=== PATIENT | male | born 1975 | race Caucasian/White ===

== ENCOUNTER 2017-04-01 11:50 | Emergency (ER) | payer OTHER ==
[2017-04-01] MEDS ORDERED: Sodium Chloride 0.9% 1,000 ML IV ONE (12:22)
--- NOTE | 2017-04-01 12:28 | EDM.PDOC ---
ED HPI GENERAL MEDICAL PROBLEM - General Chief Complaint: Neurological Problem Stated Complaint: WEAKNESS IN ARMS Time Seen by Provider: 04/01/17 12:27 Source of Information: Reports: Patient History Limitations: Reports: No Limitations - History of Present Illness INITIAL COMMENTS - FREE TEXT/NARRATIVE: History of present illness: [41-year-old male comes in complaining of sensation that his arms are very heavy as if he is lifting weights area patient indicates that this sensation has gone last couple days but he is now concerned because his friend says that his speech is altered and seems to be less clear. Patient has a left-sided facial droop that is long-standing he is unable to indicate how many years it's been like that.] Review of systems: As per history of present illness and below otherwise all systems reviewed and negative. Past medical history: As per history of present illness and as reviewed below otherwise noncontributory. Surgical history: As per history of present illness and as reviewed below otherwise noncontributory. Social history: No reported history of drug or alcohol abuse. Family history: As per history of present illness and as reviewed below otherwise noncontributory. Physical exam: HEENT: Patient has a left-sided facial droop and otherwise its stroke scale of zero, normocephalic, pupils reactive, negative for conjunctival pallor or scleral icterus, mucous membranes moist, throat clear, neck supple, nontender, trachea midline. Lungs: Clear to auscultation, breath sounds equal bilaterally, chest nontender. Heart: S1S2, regular, negative for clicks, rubs, or JVD. Abdomen: Soft, nondistended, nontender. Negative for masses or hepatosplenomegaly. Negative for costovertebral tenderness. Pelvis: Stable nontender. Genitourinary: Deferred. Rectal: Deferred. Extremities: Atraumatic, negative for cords or calf pain. Neurovascular unremarkable. Neuro: Awake, alert, oriented. Cranial nerves II through XII unremarkable. Cerebellum unremarkable. Motor and sensory unremarkable throughout. Exam nonfocal. Diagnostics: [Head CT without contrast, CBC, CMP] Therapeutics: [] Impression: [Subacute or evolving basal ganglia stroke] Plan: [Transferred to [place]] Definitive disposition and diagnosis as appropriate pending reevaluation and review of above. Bilateral Arm Pain Score (Numeric/FACES): 1 - Related Data Allergies Allergy/AdvReac Type Severity Reaction Status Date / Time Penicillins Allergy Other Verified 04/01/17 11:58 Home Meds: Home Meds . [No Known Home Meds] 04/01/17 [History] Past Medical History HEENT History: Reports: Impaired Vision Cardiovascular History: Reports: Hypertension Respiratory History: Reports: COPD Gastrointestinal History: Reports: None Genitourinary History: Reports: None Musculoskeletal History: Reports: None Neurological History: Reports: None Psychiatric History: Reports: None Endocrine/Metabolic History: Reports: None Hematologic History: Reports: None Immunologic History: Reports: None Oncologic (Cancer) History: Reports: None Dermatologic History: Reports: None - Past Surgical History Head Surgeries/Procedures: Reports: None Social & Family History - Family History Family Medical History: Noncontributory - Tobacco Use Smoking Status *Q: Current Every Day Smoker Years of Tobacco use: 13 Packs/Tins Daily: 1 - Caffeine Use Caffeine Use: Reports: Soda - Recreational Drug Use Recreational Drug Use: No ED ROS GENERAL - Review of Systems Review Of Systems: See Below (See history of present illness) ED EXAM, NEURO - Physical Exam Exam: See Below (See history of present illness) Course - Vital Signs Last Recorded V/S: Last Vital Signs Temp 37.2 C 04/01/17 11:54 Pulse 78 04/01/17 13:09 Resp 18 04/01/17 13:09 BP 138/91 H 04/01/17 13:09 Pulse Ox 99 04/01/17 13:09 - Orders/Labs/Meds Orders: Active Orders 24 hr Category Date Time Status Head wo Cont [CT] Stat Exams 04/01/17 12:22 Taken Labs: Laboratory Tests 04/01/17 04/01/17 Range/Units 12:28 12:28 WBC 9.87 (4.0-11.0) K/uL RBC 4.82 (4.50-5.90) M/uL Hgb 16.1 (13.0-17.0) g/dL Hct 45.5 (38.0-50.0) % MCV 94.4 (80.0-98.0) fL MCH 33.4 H (27.0-32.0) pg MCHC 35.4 (31.0-37.0) g/dL RDW Std Deviation 48.3 (28.0-62.0) fl RDW Coeff of Dylan 14 (11.0-15.0) % Plt Count 213 (150-400) K/uL MPV 8.70 (7.40-12.00) fL Neut % (Auto) 69.1 (48.0-80.0) % Lymph % (Auto) 22.4 (16.0-40.0) % [place] % (Auto) 6.5 (0.0-15.0) % Eos % (Auto) 1.8 (0.0-7.0) % Baso % (Auto) 0.2 (0.0-1.5) % Neut # (Auto) 6.8 H (1.4-5.7) K/uL Lymph # (Auto) 2.2 (0.6-2.4) K/uL [place] # (Auto) 0.6 (0.0-0.8) K/uL Eos # (Auto) 0.2 (0.0-0.7) K/uL Baso # (Auto) 0.0 (0.0-0.1) K/uL Nucleated RBC % 0.0 /100WBC Nucleated RBCs # 0 K/uL Sodium 139 (136-146) mmol/L Potassium 3.9 (3.5-5.1) mmol/L Chloride 108 (98-110) mmol/L Carbon Dioxide 21 (21-31) mmol/L BUN 7 (6.0-23.0) mg/dL Creatinine 0.8 (0.6-1.5) mg/dL Est Cr Clr Drug Dosing 124.20 mL/min Estimated GFR (MDRD) > 60.0 ml/min Glucose 113 H (60-110) mg/dL Calcium 9.3 (8.8-10.8) mg/dL Total Bilirubin 0.5 (0.1-1.5) mg/dL AST 21 (5-40) IU/L ALT 29 (8-54) IU/L Alkaline Phosphatase 88 (40-150) Total Protein 7.7 (6.0-8.0) g/dL Albumin 4.5 (3.5-5.0) g/dL Globulin 3.2 (2.0-3.5) g/dL Albumin/Globulin Ratio 1.4 (1.3-2.8) Meds: Medications Discontinued Medications Generic Name Dose Route Start Last Admin Trade Name Freq PRN Reason Stop Dose Admin Sodium Chloride 1,000 mls @ 999 mls/hr 04/01/17 12:22 04/01/17 12:31 Normal Saline IV 04/01/17 13:22 999 mls/hr STAT ONE Administration Departure - Departure Time of Disposition: 13:55 Disposition: DC/Tfer to Acute Hospital 02 Condition: good Clinical Impression: Stroke - Discharge Information Forms: ED Department Discharge - My Orders Last 24 Hours: My Active Orders 04/01/17 12:22 Head wo Cont [CT] Stat - Assessment/Plan Last 24 Hours: My Active Orders 04/01/17 12:22 Head wo Cont [CT] Stat
[2017-04-01 13:02] LABS: CHLORIDE,CL 108 mmol/L (98-110); SODIUM,NA 139 mmol/L (136-146)
[2017-04-01 13:55] VITALS: BP 125/86
--- NOTE | 2017-04-01 15:38 | CT ---
EXAM DATE: 04/01/17 PATIENT'S AGE: 41 Patient: JUDY CERNA Facility: [place], [place] Site . Site : [id number] Study: CT Head [id number] 1:24:07 PM Ordering Physician: Doctor Díaz Final Report: INDICATION: Heaviness in both arms which started yesterday. Technique: CT head without IV contrast. Findings: Moderate amount of loculated fluid and/or retention cysts in the left maxillary sinus. Small amount of loculated fluid and mucosal thickening in the right maxillary sinus. Fluid and mucosal thickening in the left frontal and bilateral ethmoidal sinuses. Findings consistent with sinusitis. No intracranial hemorrhage. Focal ill-defined area of low density in the right lateral basal ganglia extending toward the caudate nucleus measuring 2.2 cm. The findings most suggestive of a subacute or evolving area of infarct or less likely vague nonspecific edema. MRI brain would be helpful in further characterizing. Findings called to referring physician. Minimal prominence of the sulci in the cerebral hemispheres and cerebellar hemispheres consistent minimal atrophy. Remainder negative. Findings called to referring physician.. Impression: 1. Ill-defined 2.2 cm area of abnormal low density extending from the right basal ganglia toward the caudate nucleus are suggestive of a subacute or evolving infarct. Recommend MRI brain in further characterization. 2. No acute intracranial hemorrhage. 3. Sinusitis. Please note that all CT scans at this facility use dose modulation, iterative reconstruction, and/or weight-based dosing when appropriate to reduce radiation dose to as low as reasonably achievable. Dictated by Garret Nova MD @ Apr 01 2017 1:28PM (Electronic Signature) Report Signed by Proxy. [email or web address]
== END 2017-04-01 14:28 ==
LOC: MW.ED 11:50
DX: I63.9 Cerebral infarction, unspecified (principal); I10 Essential (primary) hypertension; F17.210 Nicotine dependence, cigarettes, uncomplicated; Z88.0 Allergy status to penicillin
CPT/HCPCS: 36415; 70450; 80053; 85025; 96360; 99285; J7040; 99283